=== PATIENT | female | born 1950 | race Caucasian/White ===

== ENCOUNTER 2021-01-26 10:13 | Outpatient (CLI) | payer MEDICARE, SELFPAY ==
--- NOTE | 2021-01-26 10:19 | XR_ITS ---
WS: [id number] SCREENING DEXA SCAN [place] CLINICAL INFORMATION: ASYMPTOMATIC MENOPAUSAL STATE COMPARISON: 2018 FINDINGS: The L1-L4 bone mineral density measures 1.214 g/cm2. This corresponds to a T score score of 0.3 and Z score of 1.0. Left femoral neck bone mineral density measures 0.756 g/cm2. This corresponds to a T score of -2.0 an d Z score of -1.3. Right femoral neck bone mineral density measures 0.818 g/cm2. This corresponds to a T score -1.5of an d Z score of -0.8. Mean femoral neck bone mineral density measures 0.787 g/cm2. This corresponds to a T score of -1.8 an d Z score of -1.1. XR/XR DEXA axial skeleton* [id number] IMPRESSION: Osteopenia femoral necks. Normal calculated bone mineralization lumbar spine al though likely spuriously elevated due to endplate sclerosis Patient's FRAX calculated 10 year probability for major osteoporotic fracture i s 19.1 % and osteoporotic hip fracture is 3.8%.
== END 2021-01-26 10:14 | disposition home or self-care (01) ==
PROVIDERS: Visit Provider Family Medicine
DX: Z78.0 Asymptomatic menopausal state (principal); M85.88 Other specified disorders of bone density and structure, other site
CPT/HCPCS: 77080

== ENCOUNTER → 2021-08-25 07:56 | Outpatient (BNVA) | payer MEDICARE, SELFPAY | PROVIDERS: PCP Family Medicine; Referring Provider Family Medicine; Visit Provider Orthopaedic Surgery | DX: M65.341 Trigger finger, right ring finger (principal) | CPT/HCPCS: 99203 ==

== ENCOUNTER → 2022-07-05 14:10 | Outpatient (BNVA) | payer MEDICARE, SELFPAY | PROVIDERS: Visit Provider Podiatrist Foot & Ankle Surgery | DX: M79.673 Pain in unspecified foot (principal); L03.039 Cellulitis of unspecified toe; L60.0 Ingrowing nail | CPT/HCPCS: 11750; 99203 ==

== ENCOUNTER 2022-07-20 08:46 | Outpatient (RCR) | payer MEDICARE, SELFPAY | END 2022-08-18 23:59 | disposition home or self-care (01) | LOC: SPT 08:46 | PROVIDERS: Visit Provider Family Medicine | DX: N39.3 Stress incontinence (female) (male) | CPT/HCPCS: 97110; 97161; 97530; 99213 ==

== ENCOUNTER 2022-08-19 06:00 | Outpatient (RCR) | payer MEDICARE, SELFPAY | END 2022-09-17 23:59 | disposition home or self-care (01) | LOC: SPT 06:00 | PROVIDERS: Visit Provider Family Medicine | DX: N39.3 Stress incontinence (female) (male) | CPT/HCPCS: 97110; 97530 ==

== ENCOUNTER 2022-09-18 06:00 | Outpatient (RCR) | payer MEDICARE, SELFPAY | END 2022-09-22 23:59 | disposition home or self-care (01) | LOC: SPT 06:00 | PROVIDERS: Visit Provider Family Medicine | DX: N39.3 Stress incontinence (female) (male) (principal) | CPT/HCPCS: 97110 ==

== ENCOUNTER 2023-02-28 13:54 | Outpatient (CLI) | payer MEDICARE, SELFPAY ==
--- NOTE | 2023-02-28 13:58 | XR_ITS ---
WS: [id number] DEXA (DUAL ENERGY X-RAY ABSORPTIOMETRY) Bone mineral density was performed using a [employer] machine. HISTORY: ASYMPTOMATIC MENOPAUSAL STATE COMPARISON: 01/26/2021 Lumbar spine BMD (L1-L4): 1.220 g/cm2 T score: 0.3 Z score: 1.6 Total hip BMD: Left: 0.717 g/cm2. T score: -2.3 Z score: -1.1 Right: 0.785 g/cm2. T score: -1.8 Z score: -0.6 10 year probability of a major osteoporotic fracture is 26.4%. Compared to the prior study from 01/26/2021. Lumbar spine bone mineral density has increased by 0.5%. Bilateral hips bone mineral density has decreased by 4.6%. Increasing sclerosis in the lumbar spine. IMPRESSION: OSTEOPENIA based upon the WHO classification for females. Significant decrease in bone mineral density within the hips since the prior study.
== END 2023-02-28 13:55 | disposition home or self-care (01) ==
LOC: RAD 13:55
PROVIDERS: PCP Family Medicine; Visit Provider Family Medicine
DX: Z78.0 Asymptomatic menopausal state (principal); M85.80 Other specified disorders of bone density and structure, unspecified site
CPT/HCPCS: 77080

== ENCOUNTER → 2023-04-04 09:44 | Outpatient (BNVA) | payer MEDICARE, SELFPAY | PROVIDERS: PCP Family Medicine; Visit Provider Specialist | DX: L60.3 Nail dystrophy; M17.12 Unilateral primary osteoarthritis, left knee | CPT/HCPCS: 73560; 73565; 99204; 99213 ==

== ENCOUNTER → 2023-04-20 13:52 | Outpatient (BNVA) | payer MEDICARE, SELFPAY | PROVIDERS: PCP Family Medicine; Visit Provider Nurse Practitioner | DX: M17.12 Unilateral primary osteoarthritis, left knee (principal) | CPT/HCPCS: 20610; 99213; J7318 ==

== ENCOUNTER → 2023-05-09 13:31 | Outpatient (BNVA) | payer MEDICARE, SELFPAY | PROVIDERS: PCP Family Medicine; Visit Provider Podiatrist Foot & Ankle Surgery | DX: L60.3 Nail dystrophy (principal) | CPT/HCPCS: 99213 ==

== ENCOUNTER → 2023-05-17 10:03 | Outpatient (BNVA) | payer MEDICARE, SELFPAY | PROVIDERS: PCP Family Medicine; Visit Provider Nurse Practitioner Family | DX: L82.1 Other seborrheic keratosis (principal); L81.4 Other melanin hyperpigmentation; L57.8 Other skin changes due to chronic exposure to nonionizing radiation; D23.71 Other benign neoplasm of skin of right lower limb, including hip; D23.72 Other benign neoplasm of skin of left lower limb, including hip; B35.1 Tinea unguium | CPT/HCPCS: 99214 ==

== ENCOUNTER → 2023-06-30 09:16 | Outpatient (BNVA) | payer MEDICARE, SELFPAY | PROVIDERS: PCP Family Medicine; Visit Provider Podiatrist Foot & Ankle Surgery | DX: L60.0 Ingrowing nail (principal); L60.3 Nail dystrophy | CPT/HCPCS: 11730 ==

== ENCOUNTER → 2023-11-02 09:11 | Outpatient (BNVA) | payer MEDICARE, SELFPAY | PROVIDERS: PCP Family Medicine; Visit Provider Nurse Practitioner | DX: M17.12 Unilateral primary osteoarthritis, left knee (principal); Z71.89 Other specified counseling | CPT/HCPCS: 20610; 99213; J7318 ==

== ENCOUNTER → 2024-02-06 10:24 | Outpatient (BNVA) | payer MEDICARE, SELFPAY | PROVIDERS: PCP Family Medicine; Visit Provider Nurse Practitioner | DX: M17.12 Unilateral primary osteoarthritis, left knee (principal) | CPT/HCPCS: 20610; J1100; J2795; J3301 ==

== ENCOUNTER → 2024-05-04 09:10 | Outpatient (BNVA) | payer MEDICARE, SELFPAY | PROVIDERS: PCP Family Medicine; Visit Provider Nurse Practitioner | DX: M17.12 Unilateral primary osteoarthritis, left knee (principal); Z71.89 Other specified counseling | CPT/HCPCS: 20610; 73560; 73565; J7318 ==

== ENCOUNTER → 2024-06-12 10:21 | Outpatient (BNVA) | payer MEDICARE, SELFPAY | PROVIDERS: PCP Family Medicine; Visit Provider Nurse Practitioner Family | DX: B35.1 Tinea unguium (principal); L82.1 Other seborrheic keratosis; L81.4 Other melanin hyperpigmentation; L57.8 Other skin changes due to chronic exposure to nonionizing radiation; D23.71 Other benign neoplasm of skin of right lower limb, including hip; D23.72 Other benign neoplasm of skin of left lower limb, including hip; D18.01 Hemangioma of skin and subcutaneous tissue; L82.0 Inflamed seborrheic keratosis; L53.8 Other specified erythematous conditions; Z78.9 Other specified health status | CPT/HCPCS: 17110; 99214 ==

== ENCOUNTER → 2024-08-02 11:21 | Outpatient (BNVA) | payer MEDICARE, SELFPAY | PROVIDERS: PCP Nurse Practitioner Family; Visit Provider Podiatrist Foot & Ankle Surgery | DX: L60.0 Ingrowing nail (principal); L03.115 Cellulitis of right lower limb | CPT/HCPCS: 11750; 99214; J9999 ==

== ENCOUNTER 2024-10-04 09:23 | Outpatient (CLI) | payer MEDICARE, SELFPAY ==
--- NOTE | 2024-10-04 09:31 | XR_ITS ---
WS: [id number] XR foot RT min 3V* [id number] REASON FOR EXAM: PAIN IN RIGHT TOES FINDINGS: No acute fracture. No periosteal reaction. Sesamoid bones intact. Minimal osteoarthritis in the DIP and PIP joints of the second through the fifth toes. Mild valgus subluxation of the first MTP joint with minimal osteoarthritis. Mild varus subluxation of the first TMT joint with mild osteoarthritis Moderate osteoarthritis in the TMT joints of the second and third toes. Remaining joint spaces intact and relatively well preserved. XR/XR foot RT min 3V* [id number] IMPRESSION: Osteoarthritis as above. No acute abnormality.
== END 2024-10-04 09:24 | disposition home or self-care (01) ==
PROVIDERS: PCP Nurse Practitioner Family; Visit Provider Nurse Practitioner Family
DX: M19.071 Primary osteoarthritis, right ankle and foot (principal); S93.321A Subluxation of tarsometatarsal joint of right foot, initial encounter; S93.141A Subluxation of metatarsophalangeal joint of right great toe, initial encounter; X58.XXXA Exposure to other specified factors, initial encounter
CPT/HCPCS: 73630

== ENCOUNTER → 2024-12-11 08:39 | Outpatient (BNVA) | payer MEDICARE, SELFPAY | PROVIDERS: PCP Nurse Practitioner Family; Visit Provider Nurse Practitioner Family | DX: B35.1 Tinea unguium (principal); L82.1 Other seborrheic keratosis; L81.4 Other melanin hyperpigmentation; L57.8 Other skin changes due to chronic exposure to nonionizing radiation; D22.39 Melanocytic nevi of other parts of face | CPT/HCPCS: 99214 ==